=== PATIENT | female | born 1950 | race Caucasian/White ===

== ENCOUNTER 2018-04-15 09:44 | Inpatient (IN) | payer BC ==
[~2018-04-15] VITALS: Ht 160 cm; Wt 47.6 kg
[2018-04-15 09:48] VITALS: BP 119/63
[2018-04-15] MEDS ORDERED: SYNTHROID88 MCG PO (10:05)
[2018-04-15] MEDS ORDERED: GABITRIL2 MG PO (10:06)
[2018-04-15] MEDS ORDERED: MIDODRINE HCL 55 M1 PO (10:06)
[2018-04-15] MEDS ORDERED: ASPIR 8181 MG PO (10:07)
[2018-04-15 10:10] LABS: MCHC 30.8 g/dL (28.0-37.0); RDW-CV 16.8 % (10.5-14.5)
[2018-04-15 10:12] LABS: HEMATOCRIT 20.4 % (37.0-47.0); MCH 24.4 pg (26.0-34.0); MCV 79.1 fL (80.0-100.0); MPV 6.9 fl. (7.2-11.1); NUCLEATED RBCS 0 /100WBC; PLATELET COUNT* 321 thou/uL (150-400); RBC 2.57 mil/uL (4.20-5.00)
[2018-04-15 10:15] LABS: HEMOGLOBIN 6.3 gm/dL (12.0-15.0)
[2018-04-15 10:21] LABS: APTT 23.1 Seconds (25.0-31.3); PROTIME 9.7 Seconds (9.20-11.50)
[2018-04-15 10:29] LABS: ANION GAP 9 mmol/L (7-16); BUN 11 mg/dL (7-18); CALCIUM 8.7 mg/dL (8.5-10.1); CHLORIDE 101 mmol/L (98-107); CO2 26 mmol/L (21-32); CREATININE 0.6 mg/dL (0.6-1.3); GLUCOSE 108 mg/dL (70-99); POTASSIUM 3.1 mmol/L (3.5-5.1); SODIUM 136 mmol/L (136-145)
[2018-04-15 10:34] LABS: ABSOLUTE BASOPHILS 0.1 thou/uL (0.0-0.2); ABSOLUTE EOSINOPHILS 0.1 thou/uL (0.0-0.7); ABSOLUTE MONOCYTES 0.1 thou/uL (0.0-1.2); ABSOLUTE NEUTROPHILS 4.8 thou/uL (1.6-8.1); HYPOCHROMASIA 2+; PLATELET ESTIMATE ADEQUATE
[2018-04-15 10:45] LABS: ALKALINE PHOSPHATASE 87 U/L (46-116); CK-MB MASS 2.6 ng/mL (<0.5-3.6); LIPASE 152 U/L (73-393); MAGNESIUM 2.1 mg/dL (1.8-2.4); NT-PRO BRAIN NAT PEPTIDE 234 pg/mL (<300); SGOT 23 U/L (15-37); SGPT 34 U/L (30-65); TOTAL BILIRUBIN 0.3 mg/dL (<0.1-1.0); TOTAL PROTEIN 7.4 g/dL (6.4-8.2); TROPONIN-I LEVEL <0.06 ng/mL (<0.06)
[2018-04-15 11:30] VITALS: BP 119/63
--- NOTE | 2018-04-15 11:35 | NUR ---
CTA CHEST COMPLEATED PATIENT RETURNED TO ED
[2018-04-15 12:04] VITALS: BP 188/55
[2018-04-15 14:33] VITALS: BP 102/42; BP 105/46; BP 106/46; BP 96/52
--- NOTE | 2018-04-15 15:26 | EKG ---
[place] [address] ELECTROCARDIOGRAM REPORT Name: LOGAN CHEEK Room: [address] IN [facility]#: [id number] Admission: 04/15/18 Attend Phys: All Lamb MD Discharge: Date of : 46 Report #: [id number] THIS REPORT FOR: //name// [facility] ED Test Date: 2018-04-15 Test Time: 09:57:32 Pat Name: LOGAN CHEEK Department: Room: Gender: F Cocktail Server: Yomi SOLIS : 1950 Requested By: Peter Walden Order Number: [id number] MD: Harley Garcia Measurements Intervals [place] Rate: 84 P: -16 LA: 132 QRS: 17 QRSD: 106 T: -1 QT: 375 QTc: 444 Interpretive Statements Sinus rhythm Probable left atrial enlargement RSR' in V1 or V2, probably normal variant Borderline T abnormalities, inferior leads No previous ECG available for comparison Electronically Signed On 04-15-2018 15:26:28 CDT by Harley Garcia [email or web address] <ELECTRONICALLY SIGNED> By: Harley Garcia MD, [facility] 04/15/18 1526 [id number] [id number] Harley Garcia MD, [facility] /EPI
[2018-04-15 15:57] VITALS: BP 109/60
--- NOTE | 2018-04-15 18:11 | NUR ---
PT IS ALERT AND ORIENTED BUT FORGETFUL S/SX OF POSSIBLE TARDIVE DYSKENSIA D/T ANTIPSYCHOTICS 1U OF BLOOD GIVEN TO PT FOR 6.3 HGB PT DENIES ANY PAIN AT THIS TIME BUT DOES HAVE RAY TO RIGHT LL SO LEG AND HIPS HURT INTERMITTENTLY
[2018-04-15 18:26] LABS: HEMATOCRIT 24.6 % (37.0-47.0); HEMOGLOBIN 7.8 gm/dL (12.0-15.0)
[2018-04-15 20:16] VITALS: BP 177/63
[2018-04-16] VITALS (8 sets, daily range): BP systolic 74–131; BP diastolic 32–83
--- NOTE | 2018-04-16 02:14 | NUR ---
RECEIVED REPORT AND ASSUMED CARE AT 1900. VSS. CARDIAC MONITORING IN PLACE. PT DENIES ANY COMPLAINTS OF PAIN. ASSESSMENT COMPLETED CHARTED. NICODERM PATCH APPLIED PER ORDERS. MEDICATION ADMIN PER EMAR. PT UP AD AZUL IN ROOM, ON RA. DISCUSSED PLAN OF CARE WITH PT. VERBALIZED UNDERSTANDING. BED IN LOWEST POSITION, CALL LIGHT WITHIN REACH. HOURLY ROUNDING COMPLETED AND ALL NEEDS MET. WILL CONTINUE TO MONITOR FOR REMAINDER OF THE SHIFT.
[2018-04-16 05:22] LABS: ABSOLUTE BASOPHILS 0.1 thou/uL (0.0-0.2); ABSOLUTE EOSINOPHILS 0.1 thou/uL (0.0-0.7); ABSOLUTE LYMPHOCYTES 1.4 thou/uL (0.8-5.3); ABSOLUTE MONOCYTES 0.4 thou/uL (0.0-1.2); ABSOLUTE NEUTROPHILS 3.2 thou/uL (1.6-8.1); BASOPHILS 1.5 %; EOSINOPHILS 2.3 %; HEMATOCRIT 21.8 % (37.0-47.0); LYMPHOCYTES 26.2 %; MCH 25.5 pg (26.0-34.0); MCHC 31.8 g/dL (28.0-37.0); MCV 80.3 fL (80.0-100.0); MONOCYTES 7.8 %; NUCLEATED RBCS 0 /100WBC; PLATELET COUNT* 267 thou/uL (150-400); POLYS 62.2 %; RBC 2.72 mil/uL (4.20-5.00); RDW-CV 16.9 % (10.5-14.5); WBC 5.2 thou/uL (4.0-11.0)
[2018-04-16 05:30] LABS: HEMOGLOBIN 6.9 gm/dL (12.0-15.0)
[2018-04-16 05:43] LABS: CALCIUM 8.7 mg/dL (8.5-10.1); CREATININE 0.6 mg/dL (0.6-1.3); POTASSIUM 3.7 mmol/L (3.5-5.1)
--- NOTE | 2018-04-16 09:20 | NUR ---
ASSUMED RESPONSIBILITY OF PT THIS AM PT IS ALERT AND ORIENTED BUT FORGETFUL NSR ON THE MONITOR TACHY AT TIMES ESPECIALLY WHEN UP PLAN FOR ANOTHER UNIT OF BLOOD POSSIBLY HGB IS 6.9 LSCTA SOA WITH EXERTION WAITING ON STOOL SAMPLE
--- NOTE | 2018-04-16 15:49 | NUR ---
CM SPOKE TO THE PATIENT TO DISCUSS HOME SITUATION, DISCHARGE PLANNING, AND TO INFORM OF THE ROLE OF CM. PATIENT ALERT AND ORIENTED. PATIENT ACTIVE AND INDEPENDENT PRIOR TO ADMISSION. PATIENT ABLE TO PERFORM INFECTION PREVENTIONIST AND DRIVES. PATIENT RESIDES AT HOME WITH HE SISITER AND SHE DOES THE CLEANING IN THE HOME. PATIENT OWNS A WALKER AND A CANE, BUT DOES NOT USE THEM FOR MOBILITY. PATIENT HAS NO HX OF HH OR SNF AND PLANS TO RETURN HOME AT D/C. CM WILL REMAIN AVAILABLE TO ASSIST AND FOLLOW NEEDED.
[2018-04-16 16:11] LABS: HEPATITIS B SURFACE AG Negative (Negative)
[2018-04-16 22:12] LABS: IgA 173 mg/dL (87-352); IgG 525 mg/dL (700-1600); IgM 38 mg/dL (26-217)
[2018-04-16 22:25] LABS: HEMATOCRIT 28.6 % (37.0-47.0)
[2018-04-16 22:32] LABS: HEMOGLOBIN 9.1 gm/dL (12.0-15.0)
--- NOTE | 2018-04-17 01:16 | NUR ---
RECIEVED REPORT AND ASSUMED CARE OF PATIENT AT 1930. RIVETING MACHINE OPERATOR IN PLACE TRACING SR. ASSESSMENT AND VITALS COMPLETED CHARTED, VSS. PATIENT A&OX4, FORGETFUL AT TIMES. BLOOD TRANSFUSION COMPLETED AT 1999 WITH NO SIGNS OF ADVERSE REACTION. REDRAW H&H WNL, REFER TO RESULTS IN Qnary. PATIENT STATES SHE "FEELS MUCH BETTER." PATIENT AMBULATED IN HALLWAY. PATIENT INQUIRED ABOUT LEAVING UNIT TO GO SMOKE. PATIENT INFORMED THAT WE ARE A NO TOBACCO FACILITY AND PATIENT UNABLE TO LEAVE UNIT DUE TO RIVETING MACHINE OPERATOR. PATIENT VERBALIZES UNDERSTANDING. NICOTINE PATCH NOTED TO LEFT SHOULDER. GOAL IS HEMODYNAMIC STABILITY. CALL LIGHT WITHIN REACH
[2018-04-17 04:00] VITALS: BP 122/41
[2018-04-17 05:10] LABS: ALBUMIN 3.5 g/dL (3.4-5.0); CALCIUM 8.7 mg/dL (8.5-10.1); CREATININE 0.7 mg/dL (0.6-1.3); POTASSIUM 3.5 mmol/L (3.5-5.1); TOTAL BILIRUBIN 0.4 mg/dL (<0.1-1.0); TOTAL PROTEIN 6.4 g/dL (6.4-8.2)
[2018-04-17 05:12] LABS: ABSOLUTE EOSINOPHILS 0.1 thou/uL (0.0-0.7); ABSOLUTE LYMPHOCYTES 1.2 thou/uL (0.8-5.3); ABSOLUTE MONOCYTES 0.5 thou/uL (0.0-1.2); ABSOLUTE NEUTROPHILS 4.3 thou/uL (1.6-8.1); BASOPHILS 0.5 %; EOSINOPHILS 1.5 %; LYMPHOCYTES 19.7 %; MCH 26.1 pg (26.0-34.0); MCV 81.4 fL (80.0-100.0); MONOCYTES 7.8 %; MPV 7.6 fl. (7.2-11.1); NUCLEATED RBCS 0 /100WBC; PLATELET COUNT* 276 thou/uL (150-400); POLYS 70.5 %; RBC 3.44 mil/uL (4.20-5.00)
--- NOTE | 2018-04-17 05:12 | NUR ---
PATIENT PROGRESSING TOWARDS GOALS: PATIENT REMAINS HEMODYNAMICALLY STABLE. VSS ON ROOM AIR. COAL AND ASH SUPERVISOR CONTINUES TO TRACE SR. PATIENT HAS RESTED WELL THIS SHIFT. CALL LIGHT WITHIN REACH
[2018-04-17 08:00] VITALS: BP 157/57
--- NOTE | 2018-04-17 11:19 | NUR ---
RECEIVED REPORT FROM CORINE PINZON. ASSUMED CARE OF PT AROUND O730. PT A/0 X4. VSS. O2 SAT 97% ON RA. CONTINUOUS PULSE OXIMETER IN PLACE. HAND PICKER IN PLACE TRACING SR. AM ASSESSMENT AND VITALS COMPLETED CHARTED. UPPER BODY TREMORS NOTED - PT STATES IT'S TARDIVE DYSKENESIA R/T LONG-TERM USE OF BIPOLAR MEDS. PT DENIES PAIN OR DISCOMFORT AT THIS TIME. IV INTACT AND INFUSING. PT EATING AND DRINKING WITHOUT ISSUE. PT HOPEFUL TO GO HOME TODAY. LOW FALL RISK PRECAUTIONS IN PLACE. CALL LIGHT IS WITHIN REACH. HOURLY ROUNDING PERFORMED. WCTM FOR DURATION OF SHIFT.
[2018-04-17 12:00] VITALS: BP 181/69
[2018-04-17 14:03] VITALS: BP 181/69
[2018-04-17] MEDS ORDERED: VENOFER200 MG/10 IVPB (14:03)
--- NOTE | 2018-04-17 16:00 | NUR ---
DISCHARGE ORDERS RECEIVED. DISCHARGE COMPLETED CHARTED. DISCHARGE SUMMARY GONE OVER WITH PT. PT AWARE OF F/U APPOINTMENTS. PT AWARE TO COME TO OUTPATIENT INFUSION TOMORROW MORNING FOR IRON INFUSION, X3 DOSES. ALL BELONGINGS GATHERED AND SENT WITH THE PT. IV AND OPERATIONS LIAISON REMOVED. PT LEFT UNIT IN WC WITH SPOUSE AND NURSING STAFF. PT LEFT FACILITY IN CAR WITH SPOUSE.
[2018-04-17 16:13] LABS: KAPPA FREE LIGHT CHAINS 11.9 mg/L (3.3-19.4); LAMBDA FREE LIGHT CHAINS 13.5 mg/L (5.7-26.3)
[2018-04-18 14:10] LABS: GLOBULIN TOTAL 2.8 g/dL (2.2-3.9); M-SPIKE Not Observed g/dL (Not Observed)
--- NOTE | 2018-04-20 09:20 | CON ---
[address] [address] CONSULTATION Name: MANASDAPHNELOGAN HARP Room: [address] IN M.R.#: [id number] Admission: 04/15/18 Attend Phys: All Lamb MD Discharge: 04/17/18 Date of : 46 Report #: [id number] THIS REPORT FOR: //name// CC: All Edwards MD DICTATED BY: Cindy Puri [facility] DATE OF SERVICE: 04/16/2018 Please note at the time of this dictation, the patient was seen and physically examined by myself. REASON FOR CONSULTATION: Acute anemia. HISTORY OF PRESENT ILLNESS: This is a 68-year-old female who presented to the Emergency Room with having a rapid heart rate, which she has been noticing over the last 2-3 weeks with increased shortness of breath, increased fatigue and decreased energy level. She states about a week ago, she noted the black stools again like she had 2 years ago, but did not seek any treatment for it. She did have another black stool that was more hard and pellet like this a.m. She states last week, her bowels were significantly looser than they normally are. However, she will normally have a bowel movement at least once a day but when this was going on a week ago, she was having several a day. Hemoglobin when the patient was admitted was 6.3. She received a unit of blood upon admission, hemoglobin went up to 7.8 and she is back down to 6.9 this a.m. Also 2 years ago when this occurred at [facility], she had an EGD and a colonoscopy which was essentially negative and found no signs of any active bleeding and she also had a small bowel capsule that she states was negative at that time. The patient denies any fever, chills, abdominal pain, weight loss at this time. ALLERGIES: DOXYCYCLINE. MEDICATIONS: From home include levothyroxine, Gabitril, aspirin and midodrine. PAST MEDICAL HISTORY: History of bipolar, hypothyroidism, hypertension. PAST SURGICAL HISTORY: Hysterectomy, appendectomy and left leg hardware placement. FAMILY HISTORY: Negative for any GI or female cancers. SOCIAL HISTORY: The patient continues to smoke a pack per day. Denies any [place] [address] CONSULTATION Name: HAMLOGAN HARP Room: [address]#: [id number] Admission: 04/15/18 Attend Phys: All Lamb MD Discharge: 04/17/18 Date of : 46 Report #: [id number] REVIEW OF SYSTEMS: Twelve-point review of systems is essentially negative except what is mentioned in the HPI. PHYSICAL EXAMINATION: VITAL SIGNS: Temperature 36.5, pulse 80, respirations 19, blood pressure 117/57. HEART: Regular rate and rhythm. LUNGS: Diminished, but clear. ABDOMEN: Soft, positive bowel sounds in all 4 quadrants with no masses or tenderness noted. LABORATORY DATA: Hemoglobin this morning, she had gone up to last night, she is back down to 6.9. Hematocrit 21.3, white count is 5.2, platelets 267. Sodium 139, potassium 3.7, chloride 103, CO2 of 24, BUN is 15, creatinine 0.6, GFR is 99 and glucose is 91. Iron is 12, TIBC is 427, ferritin is only 4 and B12 is 274. IMPRESSION: 1. Acute anemia. 2. Melanotic stool. 3. History of gastrointestinal bleed 2 years ago in which she had an esophagogastroduodenoscopy, colonoscopy and a small bowel capsule workup, all of which was negative. 4. Tobacco use. PLAN: 1. We will obtain a tagged RBC scan to see if we can see an explanation for her melanotic stool. 2. Awaiting records from [facility] for review. 3. Hematology currently on board. 4. Further recommendations to be made once the above have all been noted. Thank you for allowing us to participate in this patient's care. Please do not hesitate to call with any questions in regard to this consult. <ELECTRONICALLY SIGNED> By: Billy Lyon MD 04/20/18 0920 1027 1913Billy Lyon MD /nt
[2018-04-20] MEDS ORDERED: KEFLEX500 M1 PO (10:26)
--- NOTE | 2018-04-22 10:42 | CON ---
[address] [address] CONSULTATION Name: HAMLOGAN HARP Room: [address] IN M.R.#: [id number] Admission: 04/15/18 Attend Phys: All Lamb MD Discharge: 04/17/18 Date of : 46 Report #: [id number] THIS REPORT FOR: //name// CC: All Edwards DATE OF SERVICE: 04/15/2018 REQUESTING PHYSICIAN: All Lamb MD REASON FOR CONSULTATION: Microcytic anemia. SUBJECTIVE: A 68-year-old female who was admitted because of severe anemia. She was seen in the Emergency Room because of intermittent rapid heart rate for the last 2-3 weeks and associated with shortness of breath and decreased energy and fatigue. The patient denies any chest pain, fevers, nausea, vomiting or abdominal pain; however, she noticed black stool intermittently. The patient reported that 2 years ago, she was admitted to [facility] because of the same complaint and she had a colonoscopy at that time. Per the patient, diverticulosis was found; however, there was no active bleeding at that time. By the time of evaluation, the patient has been receiving PRBC. REVIEW OF SYSTEMS: All systems were reviewed. It was negative except above. PAST MEDICAL HISTORY: Bipolar, hypothyroidism and hypertension. PAST SURGICAL HISTORY: Hysterectomy, appendectomy and left leg hardware placement. MEDICATIONS: Levothyroxine 88 mcg p.o. daily, Gabitril 2 mg p.o. twice a day, aspirin 81 mg p.o. daily and midodrine 5 mg 3 times a day. ALLERGIES: DOXYCYCLINE, UNKNOWN REACTION. FAMILY HISTORY: Noncontributory. SOCIAL HISTORY: She is an active smoker lifelong, one pack per day. PHYSICAL EXAMINATION: VITAL SIGNS: Today, temperature 36.3, pulse is 80, respirations 17, blood pressure is 109/60 and SpO2 was 98% on room air. GENERAL: The patient was lying in bed. She was not in acute distress. LUNGS: Decreased breathing sounds bilaterally; however, there were no rales or crackles. ABDOMEN: Soft, nontender, nondistended, [place] [address] CONSULTATION Name: LOGAN CHEEK Room: [address] IN [facility].#: [id number] Admission: 04/15/18 Attend Phys: All Lamb MD Discharge: 04/17/18 Date of : 46 Report #: [id number] HEART: Regular rate and rhythm, S1 and S2 within normal limits. EXTREMITIES: No edema, no cyanosis and no clubbing. IMAGING DATA: Chest x-ray showed no evidence of PE; however, chronic appearing lung changes bilaterally, extensive irregular calcified plaquing in the aortic arch. A venous arterial examination showed abnormal resting ankle-brachial index bilaterally. LABORATORY: WBC 6.0, hemoglobin 6.3, MCV 97, RDW 16.8 and platelets 321. Creatinine 0.6. Bilirubin 0.3, AST is 23 and ALT is 34. ASSESSMENT AND PLAN: 1. A 68-year-old female who was admitted because of microcytic anemia. Per the patient, she had the same episodes and underwent a colonoscopy at [facility]. I would like to wait for her iron profile. Most likely this is consistent with iron deficiency anemia. I recommend a GI evaluation. 2. Agree with transfusion to keep her hemoglobin around 8. In addition to that, I would like to obtain a peripheral blood smear, hemolysis parameter or also serum electrophoresis with a free light chain. I will obtain a fecal occult blood of stool and colonoscopy report from [facility]. We are going to follow the patient while hospitalization. <ELECTRONICALLY SIGNED> By: Jocelyn Gutierrez MD 04/22/18 1042 1602 [id number] Gutierrez MD /nt
== END 2018-04-17 16:04 | disposition home or self-care (01) | DRG 811 ==
LOC: M.ERS 09:44 → M.TBA-ER 10:34 → M.2W 10:34
PROVIDERS: Family Medicine; Internal Medicine; ADMIT Internal Medicine
PROC: 30233N1 Transfusion of Nonautologous Red Blood Cells into Peripheral Vein, Percutaneous Approach (ICD-10-PCS; principal; 2018-04-16)
DX: D62 Acute posthemorrhagic anemia (principal); K57.91 Diverticulosis of intestine, part unspecified, without perforation or abscess with bleeding; F31.9 Bipolar disorder, unspecified; I10 Essential (primary) hypertension; E87.6 Hypokalemia; E03.9 Hypothyroidism, unspecified; F17.210 Nicotine dependence, cigarettes, uncomplicated; I73.9 Peripheral vascular disease, unspecified; D50.9 Iron deficiency anemia, unspecified; G24.9 Dystonia, unspecified; Z79.82 Long term (current) use of aspirin; Z90.710 Acquired absence of both cervix and uterus; Z90.49 Acquired absence of other specified parts of digestive tract; Z88.8 Allergy status to other drugs, medicaments and biological substances; Z79.899 Other long term (current) drug therapy

== ENCOUNTER → 2018-04-18 | Outpatient (CLI) | payer BC ==
[~2018-04-18] MED LIST: ASPIR 8181 MG PO; GABITRIL2 MG PO; IRON325 PO; KEFLEX500 M1 PO; MIDODRINE HCL 55 M1 PO; SYNTHROID88 MCG PO; VENOFER200 MG/10 IVPB
[2018-04-18 11:21] VITALS: BP 97/55
--- NOTE | 2018-04-18 11:21 | NUR ---
ARRIVED AMBULATORY. MADE SELF COMFORTABLE IN RECLINER. PT HERE FOR IRON SUCROSE 200MG IV INFUSION. STARTED 20 GAUGE IN PT'S RIGHT ANTECUBITAL. TOLERATED IRON SUCROSE INFUSION W/NO ADVERSE REACTIONS. PT'S 20 GAUGE DC'D AND REMOVED BY THIS NURSE. CANNULA REMOVED IN ITS ENTIRETY. DENIES NEEDS OR QUESTIONS AT DISCHARGE. PT GIVEN CARE NOTES SHEET ON IRON SUCROSE. PT VERBALIZED UNDERSTANDING. LEFT AMBULATORY W/SISTER. GAIT STEADY.
== END ==
LOC: M.INFUS 11:00
DX: D64.9 Anemia, unspecified (principal); E87.6 Hypokalemia; R00.2 Palpitations

== ENCOUNTER → 2018-04-19 | Outpatient (CLI) | payer BC | LOC: M.INFUS 08:00 | DX: D64.9 Anemia, unspecified (principal); R00.2 Palpitations; E87.6 Hypokalemia ==

== ENCOUNTER → 2018-04-20 | Outpatient (CLI) | payer BC ==
[~2018-04-20] VITALS: Ht 160 cm; Wt 47.6 kg
[2018-04-20 10:50] VITALS: BP 190/58
== END ==
LOC: M.INFUS 08:00 → M.ERS 09:22 → M.INFUS 09:22
DX: D64.9 Anemia, unspecified (principal); E87.6 Hypokalemia; R00.2 Palpitations

== ENCOUNTER 2018-05-19 12:02 | Emergency (ER) | payer BC ==
[~2018-05-19] VITALS: Ht 157.5 cm; Wt 46.7 kg
[~2018-05-19 12:02] MED LIST changes: -IRON325 PO
[2018-05-19] MEDS ORDERED: IRON325 PO (12:14)
[2018-05-19 12:34] LABS: ABSOLUTE BASOPHILS 0.1 thou/uL (0.0-0.2); ABSOLUTE LYMPHOCYTES 1.5 thou/uL (0.8-5.3); ABSOLUTE MONOCYTES 0.3 thou/uL (0.0-1.2); ABSOLUTE NEUTROPHILS 3.8 thou/uL (1.6-8.1); BASOPHILS 1.5 %; EOSINOPHILS 0.3 %; HEMATOCRIT 36.2 % (37.0-47.0); HEMOGLOBIN 11.8 gm/dL (12.0-15.0); LYMPHOCYTES 25.9 %; MCH 30.7 pg (26.0-34.0); MCHC 32.7 g/dL (28.0-37.0); MPV 6.4 fl. (7.2-11.1); NUCLEATED RBCS 0 /100WBC; PLATELET COUNT* 339 thou/uL (150-400); POLYS 67.3 %; RBC 3.85 mil/uL (4.20-5.00); RDW-CV 24.6 % (10.5-14.5); WBC 5.7 thou/uL (4.0-11.0)
[2018-05-19 13:13] LABS: HYPOCHROMASIA 1+; OVALOCYTES 1+; PLATELET ESTIMATE ADEQUATE
[2018-05-19 13:14] LABS: ANISOCYTOSIS 1+; POIKILOCYTOSIS 1+; TARGET CELLS Occasional
[2018-05-19 13:15] VITALS: BP 119/92
== END 2018-05-19 13:16 | disposition home or self-care (01) ==
LOC: M.ERS 12:02
PROVIDERS: Nurse Practitioner Family
DX: S80.812A Abrasion, left lower leg, initial encounter (principal); F31.9 Bipolar disorder, unspecified; E07.9 Disorder of thyroid, unspecified; Z90.49 Acquired absence of other specified parts of digestive tract; Z90.710 Acquired absence of both cervix and uterus; F17.210 Nicotine dependence, cigarettes, uncomplicated; Z88.1 Allergy status to other antibiotic agents; W22.8XXA Striking against or struck by other objects, initial encounter; Y93.89 Activity, other specified; Y92.89 Other specified places as the place of occurrence of the external cause; Y99.8 Other external cause status

== ENCOUNTER 2020-06-13 10:11 | Emergency (ER) | payer BC ==
[~2020-06-13] VITALS: Ht 157.5 cm; Wt 46.3 kg
[~2020-06-13 10:11] MED LIST changes: +IRON325 PO
[2020-06-13] MEDS ORDERED: MIDODRINE HCL 55 M1 PO (10:17)
[2020-06-13 10:57] LABS: HEMOGLOBIN 11.5 gm/dL (12.0-15.0); MCH 32.7 pg (26.0-34.0); MCHC 33.7 g/dL (28.0-37.0); NUCLEATED RBCS 0 /100WBC; PLATELET COUNT* 272 thou/uL (150-400); RBC 3.51 mil/uL (4.20-5.00); RDW-CV 14.2 % (10.5-14.5); WBC 10.8 thou/uL (4.0-11.0)
[2020-06-13 11:05] LABS: CALCIUM 9.2 mg/dL (8.5-10.1); CREATININE 0.9 mg/dL (0.6-1.3); POTASSIUM 3.8 mmol/L (3.5-5.1)
[2020-06-13 11:13] LABS: ALBUMIN 3.1 g/dL (3.4-5.0); TOTAL BILIRUBIN 0.3 mg/dL (<0.1-1.0); TOTAL PROTEIN 7.2 g/dL (6.4-8.2)
[2020-06-13 11:23] LABS: ABSOLUTE LYMPHOCYTES 0.3 thou/uL (0.8-5.3); ABSOLUTE MONOCYTES 0.4 thou/uL (0.0-1.2); PLATELET ESTIMATE ADEQUATE
[2020-06-13 11:35] LABS: URINE BLOOD NEGATIVE (Negative); URINE CLARITY CLEAR; URINE COLOR YELLOW; URINE GLUCOSE-RANDOM NEGATIVE (Negative); URINE KETONES TRACE (Negative); URINE LEUKOCYTES-REFLEX NEGATIVE (Negative); URINE NITRITE-REFLEX NEGATIVE (Negative); URINE PROTEIN 1+ (Negative); URINE UROBILINOGEN 0.2 E.U./dl (0.2-1.0)
[2020-06-13 11:37] LABS: ICTOTEST (BILI CONFIRMATORY) Negative (Negative); URINE BILIRUBIN 1+ (Negative)
[2020-06-13] MEDS ORDERED: LEVAQUIN 750 M750 MG PO (12:21)
[2020-06-13 12:29] VITALS: BP 135/98
--- NOTE | 2020-06-14 17:32 | EKG ---
[place] [address] ELECTROCARDIOGRAM REPORT Name: LOGAN CHEEK Room: [place]#: [id number] Admission: 06/13/20 Attend Phys: Discharge: 06/13/20 Date of : 46 Date of Service: 06/13/20 1035 Report #: [id number] THIS REPORT FOR: //name// [facility] ED Test Date: 2020-06-13 Test Time: 10:35:56 Pat Name: LOGAN CHEEK Department: Room: Gender: F Foot And Ankle Surgeon: [facility] : 1950 Requested By: Tapan Gallagher Order Number: [id number] MD: Dayton Dorsey Measurements Intervals [place] Rate: 84 P: 75 MD: 130 QRS: 75 QRSD: 103 T: 81 QT: 365 QTc: 432 Interpretive Statements Sinus arrhythmia RSR' in V1 or V2, probably normal variant Compared to ECG 04/15/2018 09:57:32 T-wave abnormality no longer present Electronically Signed On 06-14-2020 17:32:39 CDT by Dayton Dorsey [email or web address] <ELECTRONICALLY SIGNED> By: Dayton Dorsey MD, [facility] 06/14/20 1732 1035 1035 Dayton Dorsey MD, [facility] /EPI
== END 2020-06-13 12:30 | disposition home or self-care (01) ==
LOC: M.ERS 10:11
PROVIDERS: Emergency Medicine Emergency Medical Services
DX: J18.9 Pneumonia, unspecified organism (principal); J44.9 Chronic obstructive pulmonary disease, unspecified; F31.9 Bipolar disorder, unspecified; F17.210 Nicotine dependence, cigarettes, uncomplicated; Z20.828 Contact with and (suspected) exposure to other viral communicable diseases; Z90.710 Acquired absence of both cervix and uterus; Z90.49 Acquired absence of other specified parts of digestive tract; Z88.8 Allergy status to other drugs, medicaments and biological substances